=== PATIENT | male | born 1995 | race Caucasian/White ===

== ENCOUNTER 2017-01-18 00:47 | Emergency (ER) | payer SELFPAY ==
[2017-01-18] MEDS ORDERED: NS 1,000 ML IV ONE ×2 (00:51→08:11)
[2017-01-18] MEDS ORDERED: MIDAZOLAM 2 MG/2 ML VIAL IVP ONE (00:51)
[2017-01-18] MEDS ORDERED: MIDAZOLAM 2 MG/2 ML VIAL IM ONE (00:55)
--- NOTE | 2017-01-18 00:55 | EDPHY ---
H & P Source: Patient, Police, EMS HPI/ROS: HPI CHIEF COMPLAINT: Alcohol Intoxication HISTORY OF PRESENT ILLNESS: This patient 21-year-old male presents emergency room highly intoxicated with alcohol. He presents with police escort. Handcuffed. As he was agitated combative with EMS. Girlfriend called 911 as he got too intoxicated. Unable to walk. Vomiting. He also distally fell and had head strike. Unknown LOC. He presents to the emergency room highly intoxicated with alcohol in handcuffs screaming. He does not follow commands. Past Medical History: Unknown medical history Past Surgical History: Unknown surgical history Social History: Admits to large amount of alcohol this evening. Unknown drugs. Family History: Noncontributory ROS REVIEW OF SYSTEMS: A comprehensive 10 point review of systems is otherwise negative aside from elements mentioned in the history of present illness. Exam Constitutional screaming, acutely agitated upon arrival, Intoxicated, triage nursing summary reviewed, vital signs reviewed, intermittent Sleepy, smells of alcohol Eyes normal conjunctivae and sclera, horizontal beating nystagmus consistent acute alcohol intoxication, otherwise pupils equal and react to light HENT head/neck: Facial abrasions to the chin and left forehead no visible laceration. moist mucus membranes, no epistaxis, neck supple/ no meningismus, no raccoon eyes. Respiratory clear to auscultation bilaterally, normal breath sounds, no respiratory distress, no wheezing. Cardiovascular rate normal, regular rhythm, no murmur, no edema, distal pulses normal. Gastrointestinal soft, non-tender, no rebound, no guarding, normal bowel sounds, no distension, no pulsatile mass. Genitourinary no CVA tenderness. Musculoskeletal no midline vertebral tenderness, full range of motion, no calf swelling, no tenderness of extremities, no meningismus, good pulses, neurovascularly intact. Skin pink, warm, & dry, no rash, skin atraumatic. Neurologic agitated screaming, intoxicated with alcohol,, alert and oriented x 3, AAOx3, moves all 4 extremities equally, motor intact, sensory intact, CN II- XII intact, , normal vision, normal speech. Psychiatric normal mood/affect. Heme/Lymph/Immune no lymphadenopathy. Differential Diagnosis: Includes but is not limited to in a particular order acute alcohol intoxication, alcohol abuse, dehydration, electrolyte abnormality , nausea vomiting from acute alcohol intoxication, closed head injury, intracranial bleed, skull fracture, cervical spine injury. Medical Decision Making: Plan for this patient due to how agitated knee yelling is he will have 5 mg IV Versed. This will allow us to get CT scan head and neck for significant trauma. Check alcohol level. Monitor on nuclear monitoring technician. IV hydration. Monitor for worsening of condition. Sobriety. Re-evaluation: CT scan head and neck without contrast for trauma are negative for acute traumatic injury. Called to me by Dr. Romeo. [id number]: I did re-evaluate this patient. He does respond to painful stimuli but however still very intoxicated. He did receive Zyprexa for acute agitation upon arrival. Patient needs more time to sober. He did receive 5 IM Versed and 5 mg IM Zyprexa upon arrival due to acute agitation. He has been sleeping comfortably here in the emergency room most tonight. CT scan of his head does not show acute bleed. Needs more time to sober. Patient signed over to Dr. Jerez at [facility]. Once Sober patient can be d/c from [facility]. ([facility]) Constitutional: Initial Vital Signs O2 Sat (%) 92 01/18/17 01:00 O2 Delivery Mode Room Air O2 (L/minute) 2 Allergies/Adverse Reactions: Unable to Assess Allergy (Unverified 01/18/17 01:00) Home Medications: Medication Instructions Recorded Unobtainable 01/18/17 Medical Decision Making Other Provider: I assumed care at 0700. On my evaluation, the patient is sleeping but arousable , maintaining normal vitals. He has now been in the ED for approximately six hours which is likely secondary to a combination of intoxicants and sedation used to keep him safe here in the ED. Per nurse, patient's pupils were quite dilated on arrival, and given his agitation, this likely represents a co- ingestion beyond simply alcohol. I have ordered blood work and will continue to monitor. Patient slowly sobering over ED course with numerous re-evaluations. At time of discharge patient is ambulatory without assistance, and without complaints. VSS. Patient to be transported to [facility] via PD. (Erik Jerez) - Data Points Laboratory Results: Laboratory Results 01/18/17 07:15 01/18/17 07:15 Medications Given: Discontinued Medications Sodium Chloride (Ns) 1,000 mls @ 0 mls/hr IV EDNOW ONE; Wide Open PRN Reason: Protocol Stop: 01/18/17 08:12 Last Admin: 01/18/17 08:23 Dose: 1,000 mls Midazolam HCl (Versed) 5 mg IVP EDNOW ONE Stop: 01/18/17 00:52 Last Admin: 01/18/17 01:30 Dose: Not Given Midazolam HCl (Versed) 5 mg IM EDNOW ONE Stop: 01/18/17 00:56 Last Admin: 01/18/17 01:08 Dose: 5 mg Olanzapine (Zyprexa Im Injection) 5 mg IM EDNOW ONE Stop: 01/18/17 01:06 Last Admin: 01/18/17 01:06 Dose: 5 mg Departure - Departure Disposition: Home, Routine, Self-Care Clinical Impression: Alcoholic intoxication Qualifiers: Complication of substance-induced condition: uncomplicated Qualified Code(s): F10.920 - Alcohol use, unspecified with intoxication, uncomplicated Condition: Good Instructions: Alcohol Intoxication (ED), Abuse of Alcohol (ED) Referrals: NONE *PRIMARY CARE P,. [Primary Care Provider] - As per Instructions
[2017-01-18] MEDS ORDERED: OLANZapine 10 MG/2 ML VIAL ONE (01:02)
[2017-01-18] MEDS ORDERED: OLANZapine 10 MG/2 ML VIAL IM ONE (01:05)
[2017-01-18 07:25] LABS: % IMMATURE GRANULYOCYTES 0.4 % (0.0-1.1); ABSOLUTE IMMATURE GRANULOCYTES 0.04 10^3/uL (0.00-0.10); ADD DIFF? NO; ADD MORPH? NO; ADD SCAN? NO; ATYPICAL LYMPHOCYTE FLAG 0 (0-99); FRAGMENT RBC FLAG 0 (0-99); HEMATOCRIT 46.1 % (40.0-51.0); HEMOGLOBIN 15.9 g/dL (13.7-17.5); LEFT SHIFT FLG 0 (0-99); LIPEMIA HEMOLYSIS FLAG 90 (0-99); MEAN CELL HEMOGLOBIN 29.6 pg (27.9-34.1); MEAN CELL HEMOGLOBIN CONCENTR. 34.5 g/dL (32.4-36.7); MEAN CELL VOLUME 85.7 fL (81.5-99.8); MEAN PLATELET VOLUME 9.2 fL (8.7-11.7); PLATELET CLUMPS FLAG 0 (0-99); PLATELET COUNT 290 10^3/uL (150-400); RED BLOOD CELL COUNT 5.38 10^6/uL (4.40-6.38); RED CELL DISTRIBUTION WIDTH 13.1 % (11.5-15.2)
[2017-01-18 07:47] LABS: ANION GAP 16 mEq/L (8-16); CALCIUM 9.4 mg/dL (8.5-10.4); CARBON DIOXIDE 21 mEq/l (22-31); CHLORIDE 104 mEq/L (97-110); CREATININE 1.5 mg/dL (0.7-1.3); ETHANOL SERUM 279 mg/dL (0-10); ETHANOL SERUM 292 mg/dL (0-10); GLOMERULAR FILTRATION RATE > 60; GLUCOSE 112 mg/dL (70-100); POTASSIUM 4.3 mEq/L (3.5-5.2); SODIUM 141 mEq/L (134-144)
[2017-01-18 08:47] VITALS: O2SAT 97
[2017-01-18 10:24] VITALS: BP 122/78; PULSE 80; RESP 18; TEMP 98.6
== END 2017-01-18 10:21 | disposition home or self-care (01) ==
PROC: 3E0337Z Introduction of Electrolytic and Water Balance Substance into Peripheral Vein, Percutaneous Approach (ICD-10-PCS; principal; 2017-01-18)
DX: F10.920 Alcohol use, unspecified with intoxication, uncomplicated (principal); E86.9 Volume depletion, unspecified
CPT/HCPCS: G0480; J2250